=== PATIENT | female | born 1955 ===

== ENCOUNTER 2017-08-04 20:34 | Emergency (ER) | payer SELFPAY ==
[2017-08-04] MEDS ORDERED: Acetaminophen 500 MG TAB ONE (21:41)
--- NOTE | 2017-08-04 22:09 | RAD ---
PORTABLE CHEST: 08/04/17 HISTORY: Cough. Heart size is borderline. There are atherosclerotic changes of the aorta. The lungs are clear of infi ltrates. No significant bony findings. IMPRESSION: No active intrathoracic disease. POS: [facility]
== END 2017-08-04 22:22 | disposition home or self-care (01) ==
LOC: ERS 20:34
DX: J20.9 Acute bronchitis, unspecified (principal); E11.9 Type 2 diabetes mellitus without complications; J45.909 Unspecified asthma, uncomplicated
CPT/HCPCS: 71010; 87804